=== PATIENT | male | born 1985 | race Two or more races ===

== ENCOUNTER 2018-04-12 02:42 | Emergency (ER) | payer OTHER ==
[~2018-04-12] VITALS: Ht 182.9 cm; Wt 107.5 kg
[2018-04-12] MEDS ORDERED: ZYRTEC10 M2 PO (06:25)
== END 2018-04-12 06:36 | disposition home or self-care (01) ==
LOC: ER 02:42
DX: H10.13 Acute atopic conjunctivitis, bilateral (principal)